=== PATIENT | male | born 1950 | race Caucasian/White ===

== ENCOUNTER 2021-07-16 11:03 | Outpatient (CLI) | payer MEDICARE, SELFPAY ==
--- NOTE | 2021-07-16 11:12 | ECHOCS_ITS ---
Reason For Study: DYSPNEA/SOB Procedure This was a 2D Doppler, Color Flow transthoracic echocardiogram. The study was technically difficult. Due to body habitus. Contrast injection was performed. Exam performed in department. Left Ventricle Normal LV size. Mild concentric left ventricular hypertrophy. Left ventricular systolic function is normal. The estimated ejection fraction is 60 %. No regional wall motion abnormalities noted. Right Ventricle Normal RV size. Normal systolic function. Atria Normal left atrium. Normal right atrium. Mitral Valve Normal mitral valve. Tricuspid Valve Normal tricuspid valve. Trivial tricuspid valve insufficiency. Aortic Valve Normal aortic valve. Pulmonic Valve The pulmonic valve is not well visualized. Great Vessels Mildly dilated aortic root. The pulmonary artery is normal size. Normal inferior vena cava. Pericardium/Pleural No pericardial effusion. Medication 22 gauge I.V. with prn adaptor inserted into right arm. Performed a rapid injection of agitated mix of 9 cc saline and 1cc air to assess for atrial septal defect. Diluted definity 3.5ml given slow IV push to enhance endocardial definition. MMode/2D Measurements & Calculations LVIDd: 5.3 cm IVSd: 1.3 cm Ao root diam: 3.8 cm LVIDs: 3.6 cm LVPWd: 1.3 cm RVDd: 3.6 cm FS: 31.6 % LAV(MOD-bp): 46.2 ml LA A4 area: 17.5 cm2 LA dimension(2D): 4.2 cm LAV(MOD-bp) Indexed: 20.5 ml/m2 LAV(MOD-sp2): 45.5 ml LAV(MOD-sp4): 49.1 ml RA A4 area: 19.8 cm2 Time Measurements MV dec time: 0.16 sec Doppler Measurements & Calculations MV E max derek: 95.3 cm/sec Lat Peak E' Dreek: 7.3 cm/sec Med Peak E' Derek: 7.6 cm/sec MV A max derek: 105.6 cm/sec E/E' lat: 13.0 E/E' med: 12.6 MV E/A: 0.90 Ao V2 max: 186.4 cm/sec LV V1 max: 106.6 cm/sec PA V2 max: 109.2 cm/sec Ao max P.9 mmHg LV V1 max P.6 mmHg ECHO/Echo Complete W/ Contrast Interpretation Summary Normal LV size. Mild concentric left ventricular hypertrophy. Left ventricular systolic function is normal. The estimated ejection fraction is 60 %. Contrast injection was performed. Ordering Physician: Amos Ferreira Referring Physician: Nash Ferreira Performed By: Loretta Alves, RACHEL, RVT
[2021-07-16] MEDS: Methacholine Chloride 18 ml neb kit INHALATION (12:57)
--- NOTE | 2021-07-16 15:38 | BRONCHALL_ITS ---
Bronchoprovocation Challenge Bronchoprovocation Challenge Bronchoprovocation Challenge: BRONCHOPROVOCATION STUDY INTERPRETATION Brief HPI: Patient is a 71 year old male, currently under the care of Dr. Ferreira, who presents to [facility] for a bronchoprovocation study secondary to diagnosis of restrictive airway disease. Respiratory therapist reports good effort and reproducible results. Interpretation: Initial spirometry showed no large airways obstructive ventilatory defect. The patient was then given increasingly concentrated doses of methacholine in a stepwise/standardized fashion, using a modified ATS protocol. The patient?s maximum reduction in FEV1 was 14 percent predicted. Impression: Negative Bronchoprovocation study. This is NOT consistent with the diagnosis of asthma.
== END 2021-07-16 23:59 | disposition home or self-care (01) ==
LOC: PSN 11:05
PROVIDERS: PCP Family Medicine; Referring Provider Internal Medicine Critical Care Medicine; Visit Provider Internal Medicine Critical Care Medicine
DX: J98.4 Other disorders of lung (principal); R06.02 Shortness of breath
CPT/HCPCS: 93306; 94070; 95070; Q9957; A4216; C8929

== ENCOUNTER → 2022-04-01 | Outpatient (CLI) | payer MEDICARE, SELFPAY ==
--- NOTE | 2022-04-01 07:07 | CT_ITS ---
PROCEDURE: CT RIGHT KNEE WITHOUT CONTRAST REASON FOR EXAM: Male, 71 years old. Preoperative planning for the MakoPlasty Robotic knee surgery. Knee pain. TECHNIQUE: Transaxial CT of the hip, knee and ankle were obtained. Coronal and sagittal reconstruction images of the knee were provided. Individualized dose optimization techniques were used for this CT. COMPARISON: None. FINDINGS: Standard protocol for the preoperative planning for the MakoPlasty robotic knee surgery was performed. 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 CT/Extremity Lower without Contra IMPRESSION: Preoperative MakoPlasty Robotic knee surgical CT evaluation with findings as described above. Electronically Signed: Jim Rivera, at 14:36 EST ,
== END | disposition home or self-care (01) ==
PROVIDERS: PCP Family Medicine; Referring Provider Specialist; Visit Provider Specialist
DX: M21.161 Varus deformity, not elsewhere classified, right knee (principal)
CPT/HCPCS: 73700

== ENCOUNTER 2022-06-05 08:43 | Inpatient (IN) | payer MEDICARE, SELFPAY ==
--- NOTE | 2022-05-31 08:05 | HP.PCM_ITS ---
History and Physical History and Physical [facility] Patient Name: Leon Garnica Jr : 1950 From:? BEN ANTON PA-C? DATE OF SURGERY:? 06/05/2022 SCHEDULED PROCEDURE:? Revision right reverse total shoulder arthroplasty HISTORY OF PRESENT ILLNESS: Preoperative history and physical exam was performed on May 29, 2022.? This is a 71-year-old male who underwent a previous right reversed total rongeur arthroplasty on April 23, 2016.? He did have a fall [facility]? ?When he tripped and fell over his dog.? He tried catching himself and landed on the shoulder.? He has had pain in the right shoulder since then.? He gets grinding type sensation in the shoulder.? Patient was scheduled to undergo a total knee arthroplasty but had to be canceled as it was found he had atrial fibrillation.? Patient has been on Eliquis.? He is followed by sheriff's sergeant.? He keeps complaining of increased pain in the right shoulder since the fall.? It is affecting his activities of daily living.? He is right-hand dominant.? His x- rays reveal superiorly displacement of the humerus.? The glenoid baseplate and humeral component appears well stable.? We have obtained surgical clearance from the sheriff's sergeant Dr. Clarke who recommends we stopped the Eliquis 2 days prior to surgery.? We will resume this postoperatively.? Patient has already had lab work.? He has medical history pertinent for gastroesophageal reflux disease, hypertension and atrial fibrillation.? Currently denies any chest pain or shortness of breath.? After failing conservative measures and discussing treatment options with Dr. Woodrow Vásquez, the patient does wish to proceed with a revision right reversed total shoulder arthroplasty. REVIEW OF SYSTEMS: Review Of Systems: Constitutional: Denies change in appetite, fever,or weight change. Cardiovasular: Reports irregular heartbeat, but denies chest pain and heart murmur. Respiratory: Denies cough, pneumonia, shortness of breath, tuberculosis and wheezing. Gastrointestinal: Denies constipation, diarrhea, heartburn, nausea, rectal itching, bloody stools and vomiting. Genitourinary: Denies incontinence. Musculoskeletal: Reports pain, trouble walking and weakness, but denies leg swelling. Skin: Denies Raynaud's, history of shingles and tattoo. Neurological: Reports numbness/tingling but denies ambulatory dysfunction, di zziness and tremor. Psychiatric: Denies anxiety, insomnia and stress. Hematologic/Lymphatic: Denies anemia, bleeding/bruising tendency and past transfusion. Reviewed and updated. PAST MEDICAL HISTORY: Advance Care Plan: Other Directive, ORGAN DONOR Effective Date: 03/25/2016 Past Medical History: Medical Problems: High Blood Pressure, Gastroesophageal Reflux, A-Fib Accidents: Other - (03/28/2022) FALL - RT SHOULDER Surgical Hx: Tonsillectomy - 4 YEARS OLD Teeth Removed, Lens In Left Eye RT TSR Revision - (04/23/2016) SAW @ [facility]` Back Decompression - [facility] Cataracts - RT EYE? Anesthesia Complications: None Assistive Devices: Dentures Reviewed and updated. 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 Personal Habits:? Cigarette Use: Former.Smokeless Tobacco: Never Used Smokeless Tobacco.E-Cigarette Use: Never used.Alcohol: Occasionally.Drug Use: Denies Use.Enjoy Exercising: Daily. Reviewed, no changes. VITALS: Ht: 68.75 Wt: 245lb Wt k.132 BMI: 36.4 BP: 132/70 Pulse: 91 T: 98.2 T: 36.8C Pain Level: 7 O2SatR: 99 ALLERGIES: No Known Drug Allergy? MEDICATIONS: Famotidine 40 mg/4ml 1 by mouth every day, Albuterol Inhaler? 2 puffs as needed, Lisinopril 20 mg 1 by mouth every day, Norvasc 10 mg 1po qday, Metoprolol Succinate ER 25 mg 1 by mouth every day, Eliquis 5 mg 1 by mouth twice a day PRE-OP EXAM:? General appearance:NORMAL? ? ? Other: Eyes: Conjunctivae and lids: NORMAL? Pupils: ERR Ears, Nose, Mouth, and Throat: NORMAL? Other: Inspection of lips, teeth and gums: NORMAL? ?Other: Neck: Examination of neck: no masses noted. Respiratory: Assessment of respiratory effort: NORMAL? ?Other: ?Auscultation of lungs: clear to auscultation no wheezes, rhonchi or rales. Cardiovascular:? Auscultation of heart: Irregular-irregular rhythm consistent with atrial fibrillation PHYSICAL EXAMINATION: Previous incision on the right shoulder is well-healed without erythema or signs of infection.? He has pain with range of motion and catching sensation.? Active forward flexion 90, passive forward flexion 100.? Sensation intact to light touch axillary, radial, median, ulnar nerve distribution. IMAGING STUDIES: Previous x-rays of the right shoulder reveal stable humeral component and glenoid baseplate however there is superior displacement of the humerus. IMPRESSION: 1.? Painful right reverse total shoulder arthroplasty 2.? Hypertension 3.? Gastroesophageal reflux disease 4.? Atrial fibrillation currently on Eliquis PLAN: Dr. Woodrow Vásquez did discuss and review with the patient all treatment options including surgical versus nonsurgical options.? Patient does wish to proceed with the above-stated procedure.? Potential risks, benefits, and complications of the procedure were discussed in detail including but not limited to , infection, nerve and blood vessel damage, persistent pain, numbness, tingling, paresthesias, blood clot, pulmonary embolism, and requirement for possible further surgery.? The patient expressed full understanding and has no further questions for the doctor.? Patient does agree to proceed with the above-stated procedure and has signed the surgery consent form. We discussed the current risks associated with COVID 19.? This does include the risk of exposure while in the hospital.? Patient was reassured local hospitals have low infection rates and are taking all necessary precautions to avoid exposure to patients.? In addition, we discussed strategies that can be used to help limit exposure? including those that limit the patient's time in the hospital.? Also using strategies to limit the patient's need for continued inpatient services after being discharged from the hospital.? Patient was notified that we will need to comply with any screening or testing the hospital wishes to perform or that surgery may be delayed for any positive results. This dictation was created using voice recognition software. Phonetic and/or grammatical errors may exist ___? I have re-examined the patient.? There are no clinical changes since date of exam. ___? See progress notes for changes. ___? Dictated on admission Date: ? ? ?Time: Signature:
[2022-06-05] VITALS (16 sets, daily range): BP systolic 83–150; BP diastolic 53–90; PULSE 61–88; RESP 12–18; TEMP 36.2–37; O2SAT 92–97; BMI 36.5
--- NOTE | 2022-06-05 | SYN_PTH ---
PATIENT: ADORE VALDOVINOS LOC: [facility] U#:[id number] AGE/SX: 71/M ROOM: ME316 RE06/05/[address]: Dr. Woodrow Vásquez MD : 1950 BED: 1 DIS: 06/06/2022 SPEC #: [id number] RECD: 06/05/22 16:20 STATUS: JESSICA APONET #: [id number] ESTELA: 06/05/22 00:[address]: Woodrow Vásquez DEPT: SURGICAL PATHOLOGY RECD BY: Melchor Snowden ENTERED: 06/06/22 11:07 SP TYPE: SYNOVIUM OTHR DR: DO Dr. Nash Maciel MD Tissues: Synovial tissue of joint, NOS Procedures: Surgery Specimen Level IV HEADER OPERATION: ERAS, revision reverse total shoulder arthroplasty PRE-OP DIAGNOSIS: Right shoulder dislocation TISSUE SUBMITTED: Inferior synovium right shoulder MICROSCOPIC DIAGNOSIS Synovium right shoulder, revision total shoulder: A piece of synovial and fibrous tissue with chronic inflammation extraneous black pigment deposition, extensive histiocytic reaction and foreign body giant cell reaction. VALENTE:lucy 06/07/2022 MICROSCOPIC DESCRIPTION Slides are reviewed. GROSS DESCRIPTION Received in fixative is one container labeled with the patient's name and designated inferior synovium. The specimen consists of a dark steinberg fragment of soft tissue measuring 4.5 x 1.2 x 0.6 cm. Chief Meter Reader sections are submitted in one cassette. / AM:lucy 06/06/2022 TC:5 CPT: 31620
[2022-06-05] MEDS: Acetaminophen 500 MG Tablet 1000 MG PO ×2 (09:44→20:30)
[2022-06-05] MEDS: Gabapentin 600 MG Tablet PO (09:44)
[2022-06-05] MEDS: Magnesium 1 GM over 15 mins IV (09:45)
[2022-06-05] MEDS: Celecoxib 200 MG Capsule 400 MG PO (09:45)
[2022-06-05] MEDS: Lactated Ringers 1,000 ML 15 ML IV (09:48)
--- NOTE | 2022-06-05 11:19 | PCM.OPRPT ---
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 Patient was showing some inferior impingement with abduction levering the trials open superiorly which was corrected with lateralization of the glenosphere. Surgeon: Woodrow Vásquez lathe scalper operator: Tico Eduardo Type of Anesthesia: General Anesthesiologist: Duke Downey Special Medications: Ancef, vancomycin Specimen's removed: 3 separate specimens were sent to microbiology. Synovial lining was sent to pathology. Estimated Blood Loss (mL): 250 Fluids Replaced: 800 mL crystalloid Description of Procedure: On the date of the procedure patient's right upper extremity was marked in the preoperative area. Patient was reexamined and confirmed no changes to his medical history from time of H&P. Patient did get a preoperative block for postoperative pain control in the right shoulder. Patient was then taken back to the operating room where he was transferred to the table in the supine position. Anesthesia assumed control of the C-spine and airway and remained in control throughout the remainder of the procedure. After the patient was appropriately anesthetized and intubated we placed him in the beachchair position at about 40 degrees inclination with his head safely secured . The right upper extremity was then adequately positioned and prepped in a sterile fashion. All bony prominences had been identified and well-padded. After the right upper extremity was sterilized and the surgeons then scrubbed the right upper extremity was draped in the standard orthopedic fashion. Incision was marked out for surgery and a timeout was called. Everyone agreed upon the side, the site, the procedure to be perform, patient's identity and antibiotics given. Using the previous incision we made skin incision extending the incision proximally and distally roughly 2 cm. Sharp dissection was taken down to the fatty layers until we were able to get to the fascia over the muscle. Once we are here we carefully dissected down to the deltopectoral interval identifying the cephalic vein and retracting it laterally. The deltoid and pectoral muscles were associated with significant lesions deep in the bluntly dissected to separate these adhesions from the scar tissue and capsule around the joint. Once we are able to do this we then made our capsulotomy and identified grayish fluid from the joint. As we carefully entered the joint we can see that there was significant metallosis and dissociation of the polyethylene. The polyethylene had dislocated proximally and dissociated from the baseplate. At this time the polyethylene was removed and we were able to externally rotate for rotate the forearm and expose the proximal humerus. Appropriate releases were done in order to do this and the central screw was loosened removing the base plate. The humerus was then retracted out of the way and the screw securing the glenosphere was removed. Should be noted that the humeral stem was tested and well fixed. After removing the glenosphere baseplate was tested and remained well fixed. Based on this we elected to proceed with our head and liner exchange. We proceeded with a careful synovectomy paying close attention to any neurologic activity related to Bovie cautery. We did not note any as we did our synovectomy. In performing our synovectomy and removing the baseplate were able to obtain appropriate synovium and membranes for culture. After the synovectomy was completed and appropriate releases were done the wound was copiously irrigated out with 6 L of normal saline under low-pressure lavage. After this was completed we then placed a 46 mm glenosphere trial with a 0 mm baseplate and 2.5 mm polyethylene and trialed. This gave us good stability and adequate soft tissue tensioning. However, as we abducted the arm patient had impingement of the inferior glenoid and polyethylene causing superior separation likely adding to the mechanism of the injury. Based on this we elected to trial a 4 mm lateralized glenosphere with 0 mm polyethylene and 0 mm baseplate. This also gave us adequate tension and seem to significantly relieve the inferior impingement. Based on this the shoulder was then dislocated using a shoehorn and bone hook. Trial components were removed. Wound was copiously irrigated out normal saline. Final components were opened. The glenosphere was impacted into place and the central screw was tightened down adequately. The proximal humerus was then exposed baseplate was tightened into place with appropriate torque tensioning. And the polyethylene was impacted into place. Once was done the shoulder was reduced patient had good forward elevation good external rotation and adequately stabilize shoulder. At this point there was no anterior tissue to repair. The wound was copiously irrigated out with a 3-minute dilute Betadine lavage. 1 minute chlorhexidine lavage. Copious amounts of normal saline. The deltopectoral interval was closed with #1 Vicryl sutures. Skin was closed with 2-0 Vicryl. Final skin closure was completed with barbed Monocryl suture. Sterile dressing was placed. UltraSling was placed. Patient was placed back in supine position and awakened by anesthesia and transferred to the [facility] and transferred the PACU for recovery in stable condition. During the course of the procedure the physician senior technical architect (PE) played a vital role. Their intimate knowledge of my steps in the procedure aided in safe and expedient completion of the procedure. The PE played a vital rolls in positioning particularly in obtaining the appropriate beach chair position and securing the patient's body and head to the table. The PE was also vital in the retraction of soft tissues during the exposure and especially the glenoid work as this is a vital part of the procedure to prevent neurovascular damage. He also played a vital role in closure with my direct supervision. The PE was also important during reduction and dislocation of the joint and trials intraoperatively. Postop plan for this patient: Patient will follow normal postoperative protocol for the first 2 weeks however based on the fact that he already has an ingrown baseplate he can begin strengthening as well as range of motion and postoperatively to. He will resume his Eliquis tomorrow. He can also be weightbearing as tolerated on 2 weeks postoperatively. He will follow-up in the office in 2 weeks. Implants: [employer] glenosphere 46 mm with 4 mm lateralization cobalt-chromium [employer] 0 mm 46 mm baseplate [employer] 0 mm 46 mm polyethylene Complications No intraoperative complications Admit VTE Documentation VTE Present on Admission: No VTE Mechan Device Prophylaxis: SCD's and Thigh High YOBANY Hose VTE Pharm Prophylaxis ordered?: Yes
[2022-06-05 11:40] LABS: Bedside Glucose 122 mg/dL (74-106)
[2022-06-05] MEDS: Cefazolin 2 GM in 0.9% Normal Saline 100 ML IV (12:17)
[2022-06-05] MEDS: dexAMETHasone 10 MG/ML Vial IV (12:27)
--- NOTE | 2022-06-05 14:45 | RAD_ITS ---
STUDY: X-RAY - RIGHT SHOULDER REASON FOR EXAM: Male, 71 years old. Post op TECHNIQUE: 2 view(s) of the shoulder. COMPARISON: Comparison is made with prior study dated 01/23/2016. FINDINGS: The patient is status post right reverse shoulder replacement. There is good alignment. Postoperative soft tissue changes. RAD/Shoulder min 2 Views IMPRESSION: Status post right reverse shoulder replacement. There is no malalignment. Postoperative soft tissue changes. Electronically Signed: Kennedy Oneill MD at 15:05 EST ,
[2022-06-05] MEDS: Lactated Ringers 1,000 ML 999 ML IV (15:31)
[2022-06-05] MEDS: Lactated Ringers 1,000 ML 125 ML IV (16:41)
[2022-06-05] MEDS: oxyCODONE 5 MG Tablet PO ×2 (16:51→23:16)
--- NOTE | 2022-06-05 19:25 | PCM.PN.HOSP ---
Subjective Subjective Feels well post operatively. No should pain. Denies other complaints. Objective Data Objective Data Vital Signs: Vital Signs Temp Pulse Resp BP Pulse Ox O2 Del Method O2 Flow Rate 36.3 C L 83 18 109/71 92 Room Air 2 06/05/22 18:49 06/05/22 18:49 06/05/22 18:49 06/05/22 18:49 06/05/22 18:49 06/05/22 18:49 06/05/22 16:45 Oxygen Flow Rate (L/min) 2 Oxygen Delivery Method Room Air Weight: 109 kg Body Mass Index (BMI) 36.5 Intake & Output: Intake and Output for Last 24 Hours 06/03/22 06/04/22 06/05/22 23:59 23:59 23:59 Intake Total 2867 / 2867 Balance 2867 / 2867 Lab / Micro Data Labs: Laboratory Results - last 24 hr 06/05/22 09:24: POC Glucose 122 H Radiography Diagnostic Testing: Radiology Impression Shoulder X-Ray 06/05/22 14:45 IMPRESSION: Status post right reverse shoulder replacement. There is no malalignment. Postoperative soft tissue changes. Electronically Signed: Kennedy Oneill MD at 15:05 EST , Physical Exam Const alert and no apparent distress HEENT head/scalp atraumatic and moist oral mucous membranes Resp normal respiratory effort, no retractions and no use of accessory muscles Cardio regular rate, regular rhythm, S1 normal heart sound and S2 normal heart sound GI normal to inspection, nondistended, normoactive bowel sounds and soft to palpation Extremity Extremity Narrative: right arm in loose sling. Assessment & Plan Assessment/Plan (1) Post-operative state: PLAN: s/p right total shoulder reverse revision for implant failure from a fall. mgmt per orthopaedics. medically stable for discharge (2) Atrial fibrillation: PLAN: Echo from 07/16/21 showed an EF of 60% continue with apixaban follow up with cardiology as outpt per previous schedule (3) HTN (hypertension): PLAN: stable continue with lisinopril and amlodipine. PLAN: Plan Patient medically stable currently. No additional inpatient medical needs presents. Will sign off from a hospitalist perspective. Please reconsult if new issues arise or do not hesitate to contact us with any questions. Thank you. Charges/Coding Visit Charges Inpatient E&M: 36242 Subs Hosp L2
[2022-06-05] MEDS: Cefazolin 1 GM/50 ML BAG IV (20:20)
[2022-06-05] MEDS: Doxycycline 100 MG CAPSULE PO (20:29)
[2022-06-05] MEDS: Senna/Docusate Sodium 1 Tablet 2 TABLET PO (20:29)
--- NOTE | 2022-06-05 22:00 | NURSING ---
Patient ambulated to bathroom and voided x1
[2022-06-06 02:47] VITALS: O2SAT 82; O2SAT 92
[2022-06-06 04:24] VITALS: BP 105/78; PULSE 77; RESP 17; TEMP 36.6; O2SAT 99
[2022-06-06] MEDS: Cefazolin 1 GM/50 ML BAG IV (04:28)
[2022-06-06] MEDS: Acetaminophen 500 MG Tablet 1000 MG PO (05:56)
[2022-06-06] MEDS: oxyCODONE 5 MG Tablet PO (05:56)
[2022-06-06 07:13] LABS: Hematocrit 43.5 % (40-54); Hemoglobin 14.5 g/dL (13.0-16.5); Mean Corp Hgb Conc 33.3 g/dL (32-36); Mean Corpuscular Hgb 29.4 pg (27.0-32.0); Mean Corpuscular Volume 88.1 fL (80-94); Mean Platelet Vol. 11.3 fl (6.2-12.0); Platelet Count 211 K/mm3 (150-450); RBC Distribution Width CV 12.7 % (11.6-14.6); Red Blood Count 4.94 M/mm3 (4.6-6.2); White Blood Count 10.7 K/mm3 (4.4-11.0)
[2022-06-06 07:32] VITALS: O2SAT 95
[2022-06-06 07:43] LABS: Anion Gap 7 (5-15); BUN 23 mg/dL (7-18); BUN/Creat Ratio 21.7 RATIO (10-20); Calcium,Total 8.8 mg/dL (8.5-10.1); Chloride 98 mmol/L (98-107); Creatinine, Serum 1.06 mg/dL (0.70-1.30); EST Glomerular Filtration Rate 73 mL/min (>60); Est Glom Filt Rate - Afr Amer 88 mL/min (>60); Estimated Creatinine Clearance 60.05 ml/min; Glucose 158 mg/dL (74-106); Potassium 4.6 mmol/L (3.5-5.1); Sodium Level 133 mmol/L (136-145)
[2022-06-06 07:45] VITALS: BP 123/80; PULSE 94; RESP 16; TEMP 36.4; O2SAT 97
[2022-06-06] MEDS: Famotidine 20 MG Tablet PO (08:38)
[2022-06-06] MEDS: Lisinopril 20 MG Tablet PO (08:38)
[2022-06-06] MEDS: Doxycycline 100 MG CAPSULE PO (08:38)
[2022-06-06] MEDS: APIXABAN 5 MG TABLET PO (08:38)
[2022-06-06] MEDS: Senna/Docusate Sodium 1 Tablet 2 TABLET PO (08:38)
[2022-06-06] MEDS: amLODIPine 10 MG Tablet PO (08:39)
[2022-06-06] MEDS: Ensure Surgery 237 ML LIQUID PO ×2 (08:40→11:09)
--- NOTE | 2022-06-06 09:00 | PN.ORTHO_ITS ---
Subjective Subjective The patient was sitting in bed upon examination. Patient denies any chest pain, shortness of breath, dizziness, lightheadedness, nausea or vomiting, or calf pain. Pain is controlled on medications. No adverse overnight events. Patient overall is doing very well today. He has no numbness and tingling. Pain has been well controlled. Objective Data Objective Data Vital Signs: Vital Signs Temp Pulse Resp BP Pulse Ox O2 Del Method O2 Flow Rate 97.5 F L 94 16 123/80 H 97 Room Air 2 06/06/22 07:45 06/06/22 07:45 06/06/22 07:45 06/06/22 07:45 06/06/22 07:45 06/06/22 07:45 06/06/22 04:24 Oxygen Flow Rate (L/min) 2 Oxygen Delivery Method Room Air Weight: 109 kg Body Mass Index (BMI) 36.5 Intake & Output: Intake and Output for Last 24 Hours 06/04/22 06/05/22 06/06/22 23:59 23:59 23:59 Intake Total 2917 / 2917 1050 / 1050 Balance 2917 / 2917 1050 / 1050 Lab / Micro Data Result Diagrams: 06/06/22 06:43 06/06/22 06:43 Labs: Laboratory Results - last 24 hr 06/05/22 09:24: POC Glucose 122 H 06/06/22 06:43: WBC 10.7, RBC 4.94, Hgb 14.5, Hct 43.5, MCV 88.1, MCH 29.4, MCHC 33.3, RDW Std Deviation 41.0, RDW Coeff of Shraddha 12.7, Plt Count 211, MPV 11.3 06/06/22 06:43: Sodium 133 L, Potassium 4.6, Chloride 98, Carbon Dioxide 28.0, Anion Gap 7, BUN 23 H, Creatinine 1.06, Estim Creat Clear Calc 60.05, Est GFR (MDRD) Af Amer 88, Est GFR (MDRD) Non-Af 73, BUN/Creatinine Ratio 21.7 H, Glucose 158 H, Calcium 8.8 Radiography Diagnostic Testing: Radiology Impression Shoulder X-Ray 06/05/22 14:45 IMPRESSION: Status post right reverse shoulder replacement. There is no malalignment. Postoperative soft tissue changes. 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 S/P revision right reverse total shoulder arthroplasty POD #1 2. Continue Pain Medications: Tylenol and oxycodone 3. DVT Prophylaxis: Patient will resume his Eliquis 5 mg twice daily due to atrial fibrillation. Patient did inquire about his Aleve at home. 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 He did voiced understanding agreement. He states he has been having trouble with his knees and the Aleve has been helpful. 4. PT/OT: Continue with UltraSling at all times except to come out for range of motion exercises of the elbow and pendulum exercise 3 times daily. No range of motion of the postoperative shoulder until outpatient physical therapy begins. Outpatient physical therapy will begin 2 weeks postoperatively after follow-up with [facility] with x-rays and incision check. 5. H & H: 14.5/43.5, asymptomatic. Hemoglobin levels have been stable. 6. Encouraged Incentive Spirometry: Patient does have medical history in the chart at [facility] consistent with restrictive airway disease as well as documented by anesthesia sleep apnea. Patient did not list those medical problems at [facility]. He did have a drop in O2 saturation which did require some nasal oxygen. He is now curr ently on room air saturating at 97%. I did recommend patient continue with the incentive spirometer every hour while awake for 1 week postoperatively. If having any complications should contact his primary care physician. 7. Continue postoperative medical management per medicine 8. Disposition: Patient overall is doing very well this morning. He denies any shortness of breath or chest pain. He is breathing comfortably in no distress. Saturating at 97% on room air. I did recommend continuing the incentive spirometer postoperatively for 1 week. Patient will undergo occupational therapy this morning to be instructed on appropriate range of motion exercises. Plan will be for discharge home today. He has outpatient physical therapy established and will follow-up per postop instructions. He would like his medications E scribed to [facility]. He will contact our office upon discharge with any concerns or questions. I have reviewed the [place] Automated Rx Reporting System (OARRS) report for this patient for refill pattern and other prescriber involvement as part of the appropriate surveillance for the provision of acute and chronic controlled medications. The report was requested and reviewed on the date of this entry and was considered in the prescribing process. This dictation was created using voice recognition software. Phonetic and/or grammatical errors may exist.
--- NOTE | 2022-06-06 09:10 | PCM.DC ---
Discharge Instructions Diet Discharge Diet: No restrictions Activity Discharge Activity: May Not Drive (No driving while wearing the UltraSling for 6 weeks postoperatively and while on narcotics) May shower in (days): 1 (Dressing must be intact to skin. Turn dressing away from water.) Ice area for (Minutes): 20 (Every 1-2 hours while awake[address] Please place barrier between skin and ice pack.) Weight Bearing Status: No weight bearing (Postoperative upper extremity) Additional Activity Instructions:: Continue with UltraSling at all times. Please come out of UltraSling 3 times daily working on elbow range of motion and pendulum exercises. No range of motion of postoperative shoulder. Will begin outpatient physical therapy after 2-week scheduled follow-up. Dressing / Incision Call your doctor if your incision/area has: Continuous Slow Oozing, Sudden Increased Bleeding, Increased Pain/ Swelling, Increased Redness and Foul Smelling Discharge Call your doctor if you observe: Fever of 101 or Higher, Shortness of breath, Chest pain and Uncontrolled pain Remove Dressing in: 4 days (Okay to remove dressing on June 10, 2022) Additional Dressing/Incision Instructions:: Follow [facility] Post-op Instructions. Once postoperative dressing has been removed only use gentle soap and water over the incision. Do not use any ointments, Neosporin, salves, alcohol pads over the incision for 6 weeks postoperatively. Do not submerge underwater for 6 weeks postoperatively. Do NOT use alcohol with narcotic pain medication. Do NOT make important decisions while taking narcotic medication. If you have problems with taking your medication (rash, itching, nausea, etc.) call the office at once. Follow Up Care Test Results: Test results from this visit will be discussed in further detail at your follow-up appointment, if applicable. Discharge Plan Admission Admit Date/Time: 06/05/22 08:43 Attending Provider: Woodrow Vásquez Primary Care Provider: Nash Ferreira Consulting Providers: Kai Thayer Discharge Orders/Prescriptions Prescriptions: New acetaminophen 500 mg Tablet 1,000 mg PO Q8 21 Days Qty: 100 0RF Rx Instructions: Do not take more than 3000 mg Tylenol in a 24-hour period. doxycycline monohydrate 100 mg Capsule 100 mg PO BID 14 Days Qty: 28 0RF Rx Instructions: Take for 2 weeks postoperatively while following cultures oxycodone 5 mg Tablet 5 - 10 mg PO Q4H PRN PRN (Reason: Pain Score 4-10) 5 Days Qty: 42 0RF sennosides-docusate sodium [Stool Softener-Stimulant Laxat] 8.6-50 mg Tablet 2 tab PO BID 3 Days Qty: 12 0RF Rx Instructions: Take until first bowel movement, then as needed Continued albuterol sulfate 90 mcg/actuation HFA aerosol inhaler 2 puff inhalation Q6H PRN (Reason: SOB) sildenafil 50 mg tablet 50 mg PO DAILY PRN (Reason: Erectile Dysfunction) Rx Instructions: administer 30 minutes to 4 hours before activity lisinopril 20 MG tablet 20 mg PO DAILY amlodipine 10 MG tablet 10 mg PO DAILY Eliquis 5 mg Tablet 5 mg PO BID famotidine 20 MG tablet 20 mg PO DAILY Discontinued naproxen sodium [Aleve] 220 mg Tablet 220 mg PO Q12H PRN (Reason: Pain) Referrals / Follow Up: Physical,Therapy [Other] - 06/20/22 3:00 pm Nash Ferreira MD [Primary Care Provider] - Tico Eduardo PA-C [Med Staff - [facility] Practice [facility]] - 06/20/22 2:15 pm Disposition Disposition (needs filled in before D/C Order can be placed): Home, Self Care
--- NOTE | 2022-06-06 10:10 | CASEMGMT ---
Addendum entered by Elin Peres 06/06/22 10:26: Received tc from Keven at [facility], pt cost is $46.13. Meds will be delivered to room. Original Note: CARMEN WALTERS Assessment: Face to Face with pt for initial transition planning/care coordination assessment. CARMEN WALTERS introduced self and role at [facility], pt voices understanding and consents to assessment. Pt is A/O x4 and answers all questions appropriately at this time. Pt sitting up in chair in no distress. Care providers, pharmacy, and demographics verified/updated. Admitting Dx:R total shoulder reverse revision PCP:Jhon Specialists:Vince, cardio; jose Vásquez Preferred Pharmacy: [facility] Insurance: [facility] Prescription Benefit: no LNOK: Genevieve Do, sig other Living Arrangements: Pt lives alone in a upstairs apartment with 12 steps to enter with a rail on both sides. Pt plans to dc to his sig other's home for a short period which is a two story home with no steps to enter. Pt reports prior to surgery he was I in ADL's. Pt sig other will assist pt with ADL's. Transportation: Pt states his sig other will provide transportation until he can drive again. DME/HHC/SNF: Pt has a walker at home in preparation for an upcoming surgery on his knee, pt does not use. Pt denies previous hx of HHC or SNF stays. Pt states no concerns with going to his sig other's home at time of dc. Pt states no further concerns/needs. CM to follow. Advised pt to ask CM if any further question/concerns/needs arise, voices understanding. Pt Goal: Sig other's home Plan: Sig other's home Pt requests med to be delivered to his room and he has a credit card to pay with. TC to [facility], spoke with Netta, she is aware that meds are requested to the room and states they are still working on processing.
[2022-06-06 11:15] VITALS: O2SAT 95
[2022-06-06 11:39] VITALS: BP 114/82; PULSE 97; RESP 16; TEMP 36.6; O2SAT 97
== END 2022-06-06 13:03 | disposition home or self-care (01) | DRG 483 ==
LOC: ACINP 08:50 → MS3 17:37
PROVIDERS: Admitting Provider Specialist; PCP Family Medicine; Referring Provider Specialist; Visit Provider Specialist
PROC: 0RRJ0J7 Replacement of Right Shoulder Joint with Synthetic Substitute, Glenoid Surface, Open Approach (ICD-10-PCS; CPT 23472; principal; 2022-06-05 11:10)
DX: T84.84XA Pain due to internal orthopedic prosthetic devices, implants and grafts, initial encounter (principal); T84.028A Dislocation of other internal joint prosthesis, initial encounter; T84.098A Other mechanical complication of other internal joint prosthesis, initial encounter; I48.91 Unspecified atrial fibrillation; G47.30 Sleep apnea, unspecified; I10 Essential (primary) hypertension; K21.9 Gastro-esophageal reflux disease without esophagitis; Y83.1 Surgical operation with implant of artificial internal device as the cause of abnormal reaction of the patient, or of later complication, without mention of misadventure at the time of the procedure; Z79.01 Long term (current) use of anticoagulants; Z79.899 Other long term (current) drug therapy; Z96.611 Presence of right artificial shoulder joint; Z87.891 Personal history of nicotine dependence
CPT/HCPCS: 36415; 73030; 80048; 82962; 85027; 87015; 87070; 87075; 87077; 87102; 87116; 87176; 87186; 87205; 87206; 88305; 94668; 94762; 97166; 99252; C1776; J7040; J7120; G0463; J2405; J3475

== ENCOUNTER → 2023-05-28 | Outpatient (CLI) | payer MEDICARE, SELFPAY ==
--- NOTE | 2023-05-28 15:39 | VDLE_ITS ---
RIGHT LEFT GSV is normal. CFV is compressible, spontaneous, phasic, CFV is compressible, spontaneous, phasic, competent, and demonstrates normal competent and demonstrates normal augmentation. augmentation. FV is compressible, spontaneous, phasic, competent and demonstrates normal augmentation. POP V is compressible, spontaneous, phasic, competent and demonstrates normal augmentation. T/P Trunk is compressible. PTV is compressible. RT PerV is compressible. Procedure This is a venous duplex using B-mode, color flow and spectral Doppler. Exam performed in department. The exam was diagnostic. A preliminary report was called and/or faxed to [facility]. VL/Venous Duplex US, Unilateral Interpretation Summary There is no evidence of right lower extremity deep vein thrombosis. Right great saphenous vein appears patent and compressible segmentally. Normal flow patterns left common f emoral vein Ordering Physician: Tico Eduardo Referring Physician: Nash Ferreira MD Performed By: Jesus Lloyd RVT
== END | disposition home or self-care (01) ==
LOC: CVS 15:31
PROVIDERS: PCP Family Medicine; Referring Provider Physician Assistant Surgical; Visit Provider Physician Assistant Surgical
DX: S80.821D Blister (nonthermal), right lower leg, subsequent encounter (principal); R22.41 Localized swelling, mass and lump, right lower limb; X58.XXXD Exposure to other specified factors, subsequent encounter
CPT/HCPCS: 93971